=== PATIENT | male | born 1985 | race Caucasian/White ===

== ENCOUNTER 2018-07-21 20:32 | Emergency (ER) | payer OTHER ==
[~2018-07-21] VITALS: Ht 190.5 cm; Wt 86.2 kg
[2018-07-21 21:55] VITALS: BP 102/75
== END 2018-07-21 21:55 | disposition home or self-care (01) ==
LOC: M.ERS 20:32
DX: S61.412A Laceration without foreign body of left hand, initial encounter (principal); W31.89XA Contact with other specified machinery, initial encounter; Y93.89 Activity, other specified; Y92.89 Other specified places as the place of occurrence of the external cause; Y99.8 Other external cause status; Z91.030 Bee allergy status

== ENCOUNTER 2018-07-31 19:22 | Emergency (ER) | payer OTHER ==
[~2018-07-31] VITALS: Ht 190.5 cm; Wt 86.2 kg
[2018-07-31 20:03] VITALS: BP 133/76
== END 2018-07-31 20:03 | disposition home or self-care (01) ==
LOC: M.ERS 19:22
DX: S61.412D Laceration without foreign body of left hand, subsequent encounter (principal); X58.XXXD Exposure to other specified factors, subsequent encounter; Z91.030 Bee allergy status